=== PATIENT | male | born 1970 | race African-American/Black ===

== ENCOUNTER 2021-10-20 00:35 | Inpatient (IN) ==
[2021-10-20 02:53] LABS: Basophils # 0.1 10*3/uL (0.0-0.2); Basophils % 0.2 % (0.0-0.8); Eosinophils # 0.1 10*3/uL (0.0-0.87); Eosinophils % 0.4 % (0.00-10.9); Hematocrit 31.7 VOL% (42.0-52.0); Hemoglobin 9.4 GM/DL (14.0-18.0); Immature Granulocytes % 0.7 %; Immature Granulocytes Absolute 0.14 #; Lymphocytes # 1.4 10*3/uL (1.4-4.0); Lymphocytes % 6.5 % (21.2-54.2); Mean Corpuscular HGB Conc 29.7 GM/DL (32-36); Mean Corpuscular Volume 69.2 FL (87-102); Mean Platelet Volume 8.8 FL (9.6-12.0); Monocytes # 1.6 10*3/uL (0.11-0.8); Monocytes % 7.4 % (1.7-12.7); Neutrophils % 84.8 % (38.7-73.9); Platelet Count 267 T/CUMM (130-400); Red Blood Count 4.58 MC/CUMM (3.8-5.5); Red Cell Distribution Width 19.5 % (9.3-17.3); White Blood Count 21.2 T/CUMM (4-12)
[2021-10-20 03:13] LABS: Lymphocytes 8 % (20-55); Platelet Estimate Normal; Total Cells Counted 100
[2021-10-20 03:14] LABS: Hypochromia 1+; Microcytosis 3+
[2021-10-20 03:15] LABS: Alanine Aminotransferase 28 U/L (16-61); Albumin 2.5 G/DL (3.4-5.0); Alkaline Phosphatase 151 U/L (45-117); Aspartate Amino Transferase 19 U/L (0-37); Bilirubin,Total < 0.39 MG/DL (0.20-1.00); Blood Urea Nitrogen 38 MG/DL (7-18); Calcium 9.5 MG/DL (8.5-10.1); Carbon Dioxide 26 MMOL/L (21-32); Chloride 101 MMOL/L (98-107); Glucose 101 MG/DL (74-106); Osmolality,Calculated 276.2 MOS/KG (273-304); Potassium 4.5 MMOL/L (3.5-5.1); Sodium 134 MMOL/L (136-145); Total Protein 8.8 G/DL (6.4-8.2)
[2021-10-20] MEDS ORDERED: VANCOMYCIN INJ 1,000 MG in SODIUM CHLORIDE 0.9% 250 ML IV STA (03:30)
[2021-10-20] MEDS ORDERED: ENOXAPARIN 100 MG/ML SYRINGE SUBCUT STA (03:30)
[2021-10-20] MEDS ORDERED: ONDANSETRON 4 MG/2 ML VIAL IV PRN (03:58)
[2021-10-20] MEDS ORDERED: HYDROmorphone 1 MG/1 ML SYRINGE IV PRN (03:58)
[2021-10-20] MEDS ORDERED: GLUCAGON 1 MG VIAL IM PRN (03:58)
[2021-10-20] MEDS ORDERED: hydrALAZINE 20 MG/1 ML VIAL IV PRN (03:58)
[2021-10-20] MEDS ORDERED: DEXTROSE 10% 250 ML BAG IV PRN (03:58)
[2021-10-20] MEDS ORDERED: VANCOMYCIN INJ 500 MG in SODIUM CHLORIDE 0.9% 100 ML IV PRN (04:24)
[2021-10-20] MEDS: ACETAMINOPHEN 325 MG TABLET PO PRN ×2 (04:32→20:10)
[2021-10-20] MEDS ORDERED: PIPERACILLIN/TAZOBACTAM 3,375 MG in SODIUM CHLORIDE 0.9% 100 ML IV SCH (06:00)
[2021-10-20] MEDS ORDERED: diphenhydrAMINE 50 MG/1 ML VIAL IV STA (08:35)
[2021-10-20] MEDS ORDERED: VANCOMYCIN INJ 500 MG in SODIUM CHLORIDE 0.9% 100 ML IV ONE (09:00)
[2021-10-20] MEDS: PANTOPRAZOLE 40 MG TABLET PO SCH (09:08)
[2021-10-20] MEDS: DIVALPROEX 500 MG TABLET PO SCH ×2 (09:08→21:13)
[2021-10-20] MEDS: levETIRAcetam 500 MG TABLET PO SCH ×2 (09:09→21:13)
[2021-10-20] MEDS: amLODIPine 10 MG TABLET PO SCH (09:12)
[2021-10-20] MEDS: lisinopriL 20 MG TABLET PO SCH (09:12)
[2021-10-20] MEDS ORDERED: CLINDAMYCIN INJ 900 MG/50 ML PREMIX IV ONE (15:34)
[2021-10-20] MEDS ORDERED: HEPARIN 10,000 UNIT/10 ML VIAL IV PRN (17:08)
[2021-10-21] MEDS ORDERED: ENOXAPARIN 80 MG/0.8 ML SYRINGE SUBCUT SCH (04:00)
[2021-10-21 05:18] LABS: Basophils # 0.1 10*3/uL (0.0-0.2); Basophils % 0.3 % (0.0-0.8); Eosinophils # 0.1 10*3/uL (0.0-0.87); Eosinophils % 0.5 % (0.00-10.9); Hematocrit 31.4 VOL% (42.0-52.0); Hemoglobin 9.5 GM/DL (14.0-18.0); Immature Granulocytes % 0.8 %; Immature Granulocytes Absolute 0.18 #; Lymphocytes # 1.5 10*3/uL (1.4-4.0); Lymphocytes % 7.1 % (21.2-54.2); Mean Corpuscular HGB Conc 30.3 GM/DL (32-36); Mean Corpuscular Volume 68.1 FL (87-102); Mean Platelet Volume 9.6 FL (9.6-12.0); Monocytes # 1.8 10*3/uL (0.11-0.8); Monocytes % 8.3 % (1.7-12.7); Platelet Count 309 T/CUMM (130-400); Red Blood Count 4.61 MC/CUMM (3.8-5.5); Red Cell Distribution Width 19.2 % (9.3-17.3); White Blood Count 21.6 T/CUMM (4-12)
[2021-10-21 05:41] LABS: Calcium 9.5 MG/DL (8.5-10.1); Osmolality,Calculated 272.1 MOS/KG (273-304); Potassium 4.4 MMOL/L (3.5-5.1)
[2021-10-21 05:49] LABS: Hypochromia 1+; Lymphocytes 7 % (20-55); Microcytosis 1+; Platelet Estimate Adequate; Total Cells Counted 100
[2021-10-21] MEDS ORDERED: BUPIVACAINE MPF 0.25% 10 ML VIAL ONE (07:55)
[2021-10-21] MEDS ORDERED: LIDOCAINE 1%/EPI INJ 20 ML VIAL ONE (07:56)
[2021-10-21] MEDS ORDERED: TISSUE ADHESIVE 1 EACH APPLICATOR TOP ONE (07:56)
[2021-10-21] MEDS ORDERED: SODIUM CHLORIDE 0.9% 250 ML IV SCH (08:00)
[2021-10-21] MEDS ORDERED: CLINDAMYCIN INJ 900 MG/50 ML PREMIX IV ONE (08:00)
[2021-10-21] MEDS ORDERED: MIDAZOLAM 2 MG/2 ML VIAL ONE (08:02)
[2021-10-21] MEDS ORDERED: fentaNYL 100 MCG/2 ML VIAL ONE (08:06)
[2021-10-21] MEDS ORDERED: PHENYLEPHRINE 1 MG/10 ML SYRINGE IV ONE (08:29)
[2021-10-21] MEDS ORDERED: LACTATED RINGERS 1,000 ML IV SCH (08:30)
[2021-10-21] MEDS ORDERED: LIDOCAINE 2% 5 ML VIAL ONE (08:34)
[2021-10-21] MEDS ORDERED: propofoL 200 MG/20 ML VIAL IV ONE (08:34)
[2021-10-21] MEDS ORDERED: VANCOMYCIN INJ 500 MG in SODIUM CHLORIDE 0.9% 100 ML IV ONE (09:00)
[2021-10-21] MEDS: DIVALPROEX 500 MG TABLET PO SCH (09:55)
[2021-10-21] MEDS: PANTOPRAZOLE 40 MG TABLET PO SCH (09:55)
[2021-10-21] MEDS: levETIRAcetam 500 MG TABLET PO SCH (09:55)
[2021-10-21] MEDS: amLODIPine 10 MG TABLET PO SCH (10:08)
[2021-10-21] MEDS: lisinopriL 20 MG TABLET PO SCH (10:10)
[2021-10-21] MEDS ORDERED: GENTAMICIN INJ 100 MG/100 ML PREMIX IV ONE (11:00)
[2021-10-21 11:33] VITALS: BP 94/53
== END 2021-10-21 16:00 | disposition home or self-care (01) | DRG 466 ==
LOC: N.ED 00:35 → N.EDINP 03:58 → N.5E 15:21
PROVIDERS: ADMIT Emergency Medicine; ATTEND Emergency Medicine

== ENCOUNTER 2021-11-17 17:49 | Inpatient (IN) ==
[2021-11-17] MEDS ORDERED: ONDANSETRON 4 MG/2 ML VIAL IV STA (19:38)
[2021-11-17] MEDS ORDERED: methylPREDNISolone SOD SUC 125 MG/2 ML VIAL IV STA (19:38)
[2021-11-17] MEDS ORDERED: ALBUTEROL/IPRATROPIUM 3 ML NEB RESP TX STA (19:38)
[2021-11-17] MEDS ORDERED: MORPHINE 2 MG/1 ML SYRINGE IV STA (19:38)
[2021-11-17 20:54] LABS: Basophils # 0.1 10*3/uL (0.0-0.2); Basophils % 0.7 % (0.0-0.8); Eosinophils # 0.2 10*3/uL (0.0-0.87); Eosinophils % 2.4 % (0.00-10.9); Hematocrit 41.6 VOL% (42.0-52.0); Hemoglobin 11.9 GM/DL (14.0-18.0); Immature Granulocytes % 0.8 %; Immature Granulocytes Absolute 0.08 #; Lymphocytes # 1.5 10*3/uL (1.4-4.0); Lymphocytes % 14.9 % (21.2-54.2); Mean Corpuscular HGB Conc 28.6 GM/DL (32-36); Mean Corpuscular Volume 70.9 FL (87-102); Mean Platelet Volume 9.3 FL (9.6-12.0); Monocytes # 0.7 10*3/uL (0.11-0.8); Monocytes % 6.9 % (1.7-12.7); Neutrophils % 74.3 % (38.7-73.9); Platelet Count 249 T/CUMM (130-400); Red Blood Count 5.87 MC/CUMM (3.8-5.5); Red Cell Distribution Width 22.5 % (9.3-17.3); White Blood Count 9.8 T/CUMM (4-12)
[2021-11-17 20:56] LABS: Urine Appearance Clear (Clear); Urine Color Yellow (Yellow); Urine pH 5.5 (4.5-8.0)
[2021-11-17 20:57] LABS: Bilirubin,Urine Negative (Negative); Blood, Urine Negative (Negative); Glucose,Urine (UA) Negative (Negative); Ketones,Urine Negative (Negative); Nitrite,Urine Negative (Negative); Protein,Urine 30 mg/dL (Negative); Urine Specific Gravity 1.015 (1.001-1.035); Urine Urobilinogen 0.2 eU/dL (<2.0)
[2021-11-17 20:59] LABS: Amorphous Crystals,Urine Occasional /HPF (Few); Mucus,Urine Occasional /LPF (Occasional); RBC,Urine 2 /HPF (0-4)
[2021-11-17 21:05] LABS: Burr Cells Few; Hypochromia Slight
[2021-11-17 21:06] LABS: Platelet Estimate Adequate; Schistocytes Few
[2021-11-17 21:22] LABS: Alanine Aminotransferase 59 U/L (16-61); Albumin 3.3 G/DL (3.4-5.0); Alkaline Phosphatase 210 U/L (45-117); Aspartate Amino Transferase 18 U/L (0-37); Bilirubin,Total < 0.39 MG/DL (0.20-1.00); Blood Urea Nitrogen 62 MG/DL (7-18); Calcium 10.5 MG/DL (8.5-10.1); Carbon Dioxide 14 MMOL/L (21-32); Chloride 111 MMOL/L (98-107); Glucose 89 MG/DL (74-106); Osmolality,Calculated 282.4 MOS/KG (273-304); Sodium 133 MMOL/L (136-145); Total Protein 9.7 G/DL (6.4-8.2)
[2021-11-17] MEDS ORDERED: INSULIN REGULAR 10 UNIT, CALCIUM GLUCONATE 1,000 MG in DEXTROSE 10% 250 ML IV ONE (21:34)
[2021-11-17] MEDS ORDERED: DILTIAZEM 25 MG/5 ML VIAL IV STA (21:36)
[2021-11-17 21:58] LABS: Barbiturates Screen,Urine Negative (Negative); Benzodiazepines Screen,Urine Negative (Negative); Cannabinoid Screen,Urine Positive (Negative); Opiate Screen,Urine Positive (Negative); Phencyclidine Screen,Urine Negative (Negative)
[2021-11-17] MEDS: DILTIAZEM INJ 100 MG in SODIUM CHLORIDE 0.9% 100 ML IV SCH (22:09)
[2021-11-17] MEDS ORDERED: ALBUTEROL 2.5 MG/3 ML NEB RESP TX PRN (22:11)
[2021-11-17] MEDS ORDERED: ONDANSETRON 4 MG/2 ML VIAL IV PRN (22:12)
[2021-11-17] MEDS ORDERED: NICOTINE 21 MG/24 HR PATCH TRANSDERM PRN (22:12)
[2021-11-17] MEDS ORDERED: hydrALAZINE 20 MG/1 ML VIAL IV PRN (22:12)
[2021-11-17] MEDS ORDERED: SODIUM CHLORIDE 0.9% 1,000 ML IV SCH (22:30)
[2021-11-18] MEDS: MORPHINE 2 MG/1 ML SYRINGE IV PRN ×4 (00:48→22:02)
[2021-11-18 00:58] LABS: Arterial Base Excess iSTAT -14 MMOL/L (-2.5-2.5); Arterial Bicarbonate iSTAT 12.1 MMOL/L (20-26); Arterial O2 Saturation iSTAT 97 % (95-100); Arterial PCO2 iSTAT 28 MM HG (35-48); Arterial PO2 iSTAT 109 MM HG (80-95); Arterial Total CO2 iSTAT 13 MMO/L (23-27); Arterial pH iSTAT 7.239 (7.35-7.45)
[2021-11-18] MEDS: ALBUTEROL/IPRATROPIUM 3 ML NEB RESP TX SCH ×4 (01:00→20:00)
[2021-11-18 01:14] LABS: Calcium 10.2 MG/DL (8.5-10.1); Osmolality,Calculated 285.4 MOS/KG (273-304)
[2021-11-18 01:17] LABS: Potassium 7.3 MMOL/L (3.5-5.1)
[2021-11-18] MEDS: SODIUM BICARB INJ 100 MEQ in STERILE WATER INJ 1,000 ML IV SCH ×2 (03:56→14:55)
[2021-11-18 05:07] LABS: Alanine Aminotransferase 52 U/L (16-61); Albumin 2.5 G/DL (3.4-5.0); Alkaline Phosphatase 171 U/L (45-117); Aspartate Amino Transferase 27 U/L (0-37); Bilirubin,Total < 0.39 MG/DL (0.20-1.00); Blood Urea Nitrogen 68 MG/DL (7-18); Calcium 10.1 MG/DL (8.5-10.1); Carbon Dioxide 14 MMOL/L (21-32); Chloride 111 MMOL/L (98-107); Glucose 177 MG/DL (74-106); Osmolality,Calculated 285.7 MOS/KG (273-304); Sodium 131 MMOL/L (136-145); Total Protein 8.6 G/DL (6.4-8.2)
[2021-11-18 05:17] LABS: Potassium 8.8 MMOL/L (3.5-5.1)
[2021-11-18] MEDS ORDERED: INSULIN REGULAR 10 UNIT, CALCIUM GLUCONATE 1,000 MG in DEXTROSE 10% 250 ML IV ONE (05:19)
[2021-11-18 05:33] LABS: Basophils % 0.3 % (0.0-0.8); Hemoglobin 10.1 GM/DL (14.0-18.0); Immature Granulocytes % 0.9 %; Immature Granulocytes Absolute 0.09 #; Lymphocytes # 0.5 10*3/uL (1.4-4.0); Lymphocytes % 5.1 % (21.2-54.2); Mean Corpuscular HGB Conc 29.3 GM/DL (32-36); Mean Corpuscular Volume 70.7 FL (87-102); Mean Platelet Volume 9.4 FL (9.6-12.0); Monocytes # 0.1 10*3/uL (0.11-0.8); Monocytes % 0.5 % (1.7-12.7); Neutrophils % 93.2 % (38.7-73.9); Platelet Count 217 T/CUMM (130-400); Red Blood Count 4.88 MC/CUMM (3.8-5.5); Red Cell Distribution Width 21.5 % (9.3-17.3); White Blood Count 10.2 T/CUMM (4-12)
[2021-11-18 05:34] LABS: Hematocrit 34.5 VOL% (42.0-52.0)
[2021-11-18] MEDS: SODIUM ZIRCONIUM CYCLOSILICATE 10 GM PACK PO SCH ×3 (05:37→20:13)
[2021-11-18 05:39] LABS: Eosinophils 1 % (0-10); Lymphocytes 3 % (20-55); Platelet Estimate Adequate; Poikilocytosis 1+; Total Cells Counted 100
[2021-11-18] MEDS ORDERED: CALCIUM GLUCONATE IV ONE (06:00)
[2021-11-18] MEDS ORDERED: DEXTROSE 10% IV ONE (06:00)
[2021-11-18] MEDS ORDERED: INSULIN REGULAR IV ONE (06:00)
[2021-11-18 10:08] LABS: Calcium 10.1 MG/DL (8.5-10.1); Osmolality,Calculated 281.8 MOS/KG (273-304)
[2021-11-18 10:10] LABS: Potassium 8.7 MMOL/L (3.5-5.1)
[2021-11-18] MEDS ORDERED: SODIUM POLYSTYRENE SULFATE 15 GM/60 ML BOTTLE PO ONE (10:25)
[2021-11-18] MEDS: ROSUVASTATIN 20 MG TABLET PO SCH (11:01)
[2021-11-18] MEDS: ASPIRIN EC 81 MG TABLET PO SCH (11:01)
[2021-11-18] MEDS: amLODIPine 5 MG TABLET PO SCH (11:02)
[2021-11-18] MEDS ORDERED: MIDAZOLAM 2 MG/2 ML VIAL ONE (17:20)
[2021-11-18 18:06] LABS: Hepatitis B Core IgM Quant 0.08 Index; Hepatitis B Surface Ag Quant < 0.10 Index; Hepatitis B Surface Ag Result Non-Reactive (NonReactive); Hepatitis C Virus Ab Quant 0.09 Index; Hepatitis C Virus Ab Result Non-Reactive (NonReactive)
[2021-11-18] MEDS ORDERED: MIDAZOLAM 2 MG/2 ML VIAL IV STA (18:21)
[2021-11-18] MEDS ORDERED: METOPROLOL TARTRATE 5 MG/5 ML VIAL IV ONE (19:00)
[2021-11-18] MEDS ORDERED: HEPARIN 10,000 UNIT/10 ML VIAL IV PRN (19:37)
[2021-11-18] MEDS ORDERED: diphenhydrAMINE CAP 25 MG CAPSULE PO ONE (21:00)
[2021-11-18] MEDS ORDERED: DIGOXIN 0.5 MG/2 ML AMP IV ONE ×2 (21:20→22:20)
[2021-11-18 22:08] LABS: Calcium 8.9 MG/DL (8.5-10.1); Potassium 4.4 MMOL/L (3.5-5.1)
[2021-11-18] MEDS: DILTIAZEM INJ 100 MG in SODIUM CHLORIDE 0.9% 100 ML IV SCH (22:47)
[2021-11-19] MEDS: ALBUTEROL/IPRATROPIUM 3 ML NEB RESP TX SCH ×5 (01:09→23:57)
[2021-11-19] MEDS: SODIUM BICARB INJ 100 MEQ in STERILE WATER INJ 1,000 ML IV SCH ×2 (02:00→13:35)
[2021-11-19] MEDS: MORPHINE 2 MG/1 ML SYRINGE IV PRN ×2 (02:47→07:30)
[2021-11-19 04:08] LABS: Basophils # 0.1 10*3/uL (0.0-0.2); Basophils % 0.4 % (0.0-0.8); Eosinophils # 0.1 10*3/uL (0.0-0.87); Eosinophils % 0.9 % (0.00-10.9); Hematocrit 29.2 VOL% (42.0-52.0); Immature Granulocytes % 0.7 %; Immature Granulocytes Absolute 0.09 #; Lymphocytes # 1.9 10*3/uL (1.4-4.0); Lymphocytes % 13.4 % (21.2-54.2); Mean Corpuscular HGB Conc 30.8 GM/DL (32-36); Mean Corpuscular Volume 66.8 FL (87-102); Mean Platelet Volume 9.6 FL (9.6-12.0); Monocytes # 1.1 10*3/uL (0.11-0.8); Monocytes % 7.7 % (1.7-12.7); Neutrophils % 76.9 % (38.7-73.9); Platelet Count 169 T/CUMM (130-400); Red Blood Count 4.37 MC/CUMM (3.8-5.5); Red Cell Distribution Width 20.7 % (9.3-17.3); White Blood Count 13.8 T/CUMM (4-12)
[2021-11-19 04:22] LABS: Calcium 8.6 MG/DL (8.5-10.1); Osmolality,Calculated 282.4 MOS/KG (273-304); Potassium 5.1 MMOL/L (3.5-5.1)
[2021-11-19 04:26] LABS: Hypochromia Slight; Microcytosis 1+; Target Cells Few
[2021-11-19 04:27] LABS: Platelet Estimate Normal
[2021-11-19] MEDS: levETIRAcetam 500 MG TABLET PO SCH ×2 (08:30→20:29)
[2021-11-19] MEDS: ALPRAZolam 0.5 MG TABLET PO PRN ×2 (08:30→20:29)
[2021-11-19] MEDS: ROSUVASTATIN 20 MG TABLET PO SCH (08:30)
[2021-11-19] MEDS: SODIUM ZIRCONIUM CYCLOSILICATE 10 GM PACK PO SCH (08:30)
[2021-11-19] MEDS: ASPIRIN EC 81 MG TABLET PO SCH (08:30)
[2021-11-19] MEDS: amLODIPine 5 MG TABLET PO SCH (08:30)
[2021-11-19] MEDS: DIVALPROEX 500 MG TABLET PO SCH ×2 (08:30→20:29)
[2021-11-19] MEDS ORDERED: ALTEPLASE 2 MG VIAL IV PRN (13:04)
[2021-11-19] MEDS: DILTIAZEM 30 MG TABLET PO SCH (18:30)
[2021-11-19] MEDS: DILTIAZEM INJ 100 MG in SODIUM CHLORIDE 0.9% 100 ML IV SCH ×2 (18:30→22:06)
[2021-11-20] MEDS: SODIUM BICARB INJ 100 MEQ in STERILE WATER INJ 1,000 ML IV SCH (00:45)
[2021-11-20] MEDS: DILTIAZEM 30 MG TABLET PO SCH ×3 (01:37→18:00)
[2021-11-20] MEDS: MORPHINE 2 MG/1 ML SYRINGE IV PRN (04:10)
[2021-11-20 04:37] LABS: Basophils % 0.5 % (0.0-0.8); Eosinophils # 0.3 10*3/uL (0.0-0.87); Eosinophils % 3.6 % (0.00-10.9); Hematocrit 25.4 VOL% (42.0-52.0); Hemoglobin 7.5 GM/DL (14.0-18.0); Immature Granulocytes % 0.8 %; Immature Granulocytes Absolute 0.06 #; Lymphocytes # 1.6 10*3/uL (1.4-4.0); Lymphocytes % 20.6 % (21.2-54.2); Mean Corpuscular HGB Conc 29.5 GM/DL (32-36); Mean Corpuscular Volume 69.4 FL (87-102); Mean Platelet Volume 9.9 FL (9.6-12.0); Monocytes # 0.8 10*3/uL (0.11-0.8); Monocytes % 10.4 % (1.7-12.7); Neutrophils % 64.1 % (38.7-73.9); Platelet Count 153 T/CUMM (130-400); Red Blood Count 3.66 MC/CUMM (3.8-5.5); Red Cell Distribution Width 20.8 % (9.3-17.3); White Blood Count 7.8 T/CUMM (4-12)
[2021-11-20 04:52] LABS: Calcium 8.3 MG/DL (8.5-10.1); Osmolality,Calculated 295.1 MOS/KG (273-304); Potassium 4.7 MMOL/L (3.5-5.1)
[2021-11-20] MEDS: ALBUTEROL/IPRATROPIUM 3 ML NEB RESP TX SCH (07:32)
[2021-11-20] MEDS: ALPRAZolam 0.5 MG TABLET PO PRN ×2 (08:17→20:39)
[2021-11-20] MEDS: DIVALPROEX 500 MG TABLET PO SCH ×2 (08:18→20:39)
[2021-11-20] MEDS: levETIRAcetam 500 MG TABLET PO SCH ×2 (08:18→20:39)
[2021-11-20] MEDS: ASPIRIN EC 81 MG TABLET PO SCH (08:18)
[2021-11-20] MEDS: ROSUVASTATIN 20 MG TABLET PO SCH (08:18)
[2021-11-20 08:37] LABS: Hematocrit 27.9 VOL% (42.0-52.0); Hemoglobin 8.4 GM/DL (14.0-18.0)
[2021-11-20] MEDS: PANTOPRAZOLE 40 MG TABLET PO SCH (09:34)
[2021-11-21] MEDS: DILTIAZEM 30 MG TABLET PO SCH ×2 (02:23→09:53)
[2021-11-21 04:35] LABS: Basophils # 0.1 10*3/uL (0.0-0.2); Basophils % 0.9 % (0.0-0.8); Eosinophils # 0.5 10*3/uL (0.0-0.87); Eosinophils % 5.8 % (0.00-10.9); Hematocrit 24.1 VOL% (42.0-52.0); Hemoglobin 7.1 GM/DL (14.0-18.0); Immature Granulocytes % 0.8 %; Immature Granulocytes Absolute 0.06 #; Lymphocytes # 1.6 10*3/uL (1.4-4.0); Lymphocytes % 19.8 % (21.2-54.2); Mean Corpuscular HGB Conc 29.5 GM/DL (32-36); Mean Corpuscular Volume 69.3 FL (87-102); Mean Platelet Volume 9.4 FL (9.6-12.0); Monocytes # 0.9 10*3/uL (0.11-0.8); Neutrophils % 61.7 % (38.7-73.9); Platelet Count 158 T/CUMM (130-400); Red Blood Count 3.48 MC/CUMM (3.8-5.5); Red Cell Distribution Width 20.9 % (9.3-17.3); White Blood Count 7.9 T/CUMM (4-12)
[2021-11-21 04:52] LABS: Calcium 8.5 MG/DL (8.5-10.1); Osmolality,Calculated 286.7 MOS/KG (273-304); Potassium 5.1 MMOL/L (3.5-5.1)
[2021-11-21] MEDS: levETIRAcetam 500 MG TABLET PO SCH (08:21)
[2021-11-21] MEDS: ASPIRIN EC 81 MG TABLET PO SCH (08:21)
[2021-11-21] MEDS: PANTOPRAZOLE 40 MG TABLET PO SCH (08:21)
[2021-11-21] MEDS: ROSUVASTATIN 20 MG TABLET PO SCH (08:21)
[2021-11-21] MEDS: DIVALPROEX 500 MG TABLET PO SCH (08:21)
[2021-11-21 12:47] VITALS: BP 130/58
[2021-11-21] MEDS ORDERED: SODIUM POLYSTYRENE SULFATE 15 GM/60 ML BOTTLE PO ONE (13:34)
[2021-11-21] MEDS ORDERED: SODIUM ZIRCONIUM CYCLOSILICATE 10 GM PACK PO ONE (13:35)
== END 2021-11-21 14:52 | disposition home or self-care (01) | DRG 425 ==
LOC: EDBD → EDUNIT# → N.ED 17:49 → N.EDINP 22:11 → SUATTDRO 22:11 → N.ICU 11-18 00:05
PROVIDERS: ADMIT Internal Medicine; ATTEND Family Medicine